=== PATIENT | female | born 1985 | race Caucasian/White ===

== ENCOUNTER → 2019-04-02 | Outpatient (CLI) | payer OTHER | END | disposition home or self-care (01) | LOC: PRENATAL 08:36 | DX: O99.212 Obesity complicating pregnancy, second trimester (principal); O35.3XX0 Maternal care for (suspected) damage to fetus from viral disease in mother, not applicable or unspecified ==

== ENCOUNTER → 2019-05-08 | Outpatient (CLI) | payer OTHER | END | disposition home or self-care (01) | LOC: PRENATAL 08:50 | DX: O26.842 Uterine size-date discrepancy, second trimester (principal); O34.12 Maternal care for benign tumor of corpus uteri, second trimester; O99.212 Obesity complicating pregnancy, second trimester ==

== ENCOUNTER 2019-08-01 13:15 | Inpatient (IN) | payer OTHER ==
[~2019-08-01] VITALS: Ht 157.5 cm; Wt 2.7 kg
[2019-08-11] MEDS ORDERED: ASPIR 8181 MG PO (04:37)
[2019-08-11] MEDS ORDERED: PRENATAL TABLE1 EAC1 PO (04:38)
[2019-08-11] MEDS ORDERED: FOLBEE PLUS CZ1 EACH PO (04:39)
[2019-08-14] MEDS ORDERED: CODE1TAB37 PO (08:00)
[2019-08-14] MEDS ORDERED: IBUPROFEN800 MG PO (08:01)
[2019-08-14] MEDS ORDERED: PROFERRIN-FORT1 EACH PO (08:02)
== END 2019-08-14 10:35 | disposition home or self-care (01) | DRG 788 ==
LOC: LDR 08-11 04:29 → OB/GYN 08-11 04:29 → O/R 08-11 15:43 → OB/GYN 08-11 16:04
PROVIDERS: ADMIT Obstetrics & Gynecology
PROC: 3E033VJ Introduction of Other Hormone into Peripheral Vein, Percutaneous Approach (ICD-10-PCS; 2019-08-11)
PROC: 4A1HXCZ Monitoring of Products of Conception, Cardiac Rate, External Approach (ICD-10-PCS; 2019-08-11)
PROC: 10D00Z1 Extraction of Products of Conception, Low, Open Approach (ICD-10-PCS; principal; 2019-08-11 13:00)
DX: O82 Encounter for cesarean delivery without indication (principal); O62.1 Secondary uterine inertia; Z3A.37 37 weeks gestation of pregnancy; Z37.0 Single live birth